=== PATIENT | female | born 1985 | race Caucasian/White ===

== ENCOUNTER 2021-04-15 10:56 | Emergency (ER) | payer OTHER, SELFPAY ==
[2021-04-15 11:00] VITALS: BP 158/112; PULSE 86; RESP 18; TEMP 36.8; O2SAT 100
--- NOTE | 2021-04-15 11:19 | ED.BACK ---
HPI - Back Pain/Injury General Chief Complaint: Back Pain/Injury Stated Complaint: low back pain Time Seen by Provider: 04/15/21 11:19 Source: patient, family and RN notes reviewed Mode of arrival: ambulatory Limitations: no limitations History of Present Illness HPI Narrative: 35-year-old female presents to the [facility] with complaints of lower back pain after falling on the ice on 09 April. Was seen in ER on 10 April states there was an x-ray done and treated for muscle strain. No acute findings on the x-ray. Reports having enough muscle relaxers and anti-inflammatories at home states she has still half bottle Denies any loss or retention of bowel or bladder. States that every once in a while she has a shooting pain left leg. Denies any numbness or tingling MD elicited complaint: back pain Related Data Home Medications Medication Instructions Recorded Confirmed amlodipine 5 mg PO DAILY 04/15/21 04/15/21 chlorthalidone 25 mg PO DAILY 04/15/21 04/15/21 clonidine HCl 0.2 mg PO DAILY 04/15/21 04/15/21 cyclobenzaprine 10 mg PO DAILY PRN 04/15/21 04/15/21 hydralazine 50 mg PO DAILY 04/15/21 04/15/21 losartan 100 mg PO DAILY 04/15/21 04/15/21 naproxen 500 mg PO DAILY PRN 04/15/21 04/15/21 potassium chloride 20 meq PO DAILY 04/15/21 04/15/21 Allergies Allergy/AdvReac Type Severity Reaction Status Date / Time No Known Allergies Allergy Verified 04/15/21 11:29 Review of Systems Review of Systems: All systems reviewed & are unremarkable except as noted in HPI and below Constitutional: Constitutional: Reports no additional constitutional complaints Eyes: Eyes: Reports no additional eye complaints ENT: Reports system reviewed and no additional complaints, except as documented Cardiovascular: Cardiovascular: Reports no additional cardiovascular complaints and Denies chest pain Respiratory: Respiratory: Reports no additional respiratory complaints Gastrointestinal: Gastrointestinal: Reports no additional gastrointestinal complaints and Denies abdominal pain Musculoskeletal: Musculoskeletal: Reports as per HPI and Reports back pain (Left lower) Integumentary/Breasts: Skin/Breast: Reports system reviewed and no additional complaints, except as docu Neurologic: Reports system reviewed and no additional complaints, except as documented, Denies focal weakness, Denies numbness and Denies weakness Psychiatric: Psychiatric: Reports no additional psychiatric complaints Allergic/Immunologic: Allergic/Immunologic: Reports no additional allergic/immunologic complaints PMFSH Comments At the time of my signature, I reviewed and agree with the nursing past medical, surgical, social, and family history. There is no relevant family history pertinent to the patient complaint. Exam Const: General: healthy appearing, no acute distress and alert Nutritional Appearance: well nourished and obese morbidly obese Orientation/consciousness: patient oriented x3 Limitations: no limitations HENMT: Head: normal to inspection Ears: external ears normal Eyes: Pupils: Equal, round and reactive pupils present Neck: Neck: normal visual inspection, no lymphadenopathy and no meningeal signs Chest: Chest palpation & inspection: normal inspection of the chest Resp: Effort & Inspection: normal respiratory effort and no use of accessory muscles Auscultation: clear to auscultation bilaterally, no crackles, no rales, no rhonchi and no wheezes Cardio: Rate: regular rate Rhythm: regular rhythm GI: GI Palp: Yes Soft to palpation, No Tenderness to palpation present (GI) and No Guarding due to palpation present (GI) Back/Spine/Pelvis: Back: no CVA tenderness Cervical Spine: normal cervical lordosis and cervical ROM normal Thoracic/Lumbar Spine: thoracic and lumbar spine normal to inspection Pelvis: no pain with anterior-posterior compression and no pain with lateral compression Back/spine/pelvis image: 1. Tenderness with palpation and with mo
== END 2021-04-15 11:45 | disposition home or self-care (01) ==
PROVIDERS: Emergency Provider Nurse Practitioner
DX: S39.012A Strain of muscle, fascia and tendon of lower back, initial encounter (principal); W01.0XXA Fall on same level from slipping, tripping and stumbling without subsequent striking against object, initial encounter; I10 Essential (primary) hypertension
CPT/HCPCS: 99212; G0463

== ENCOUNTER 2021-12-09 08:37 | Emergency (ER) | payer OTHER, SELFPAY ==
[2021-12-09 08:45] VITALS: BP 161/114; PULSE 78; RESP 12; TEMP 36; O2SAT 100
--- NOTE | 2021-12-09 09:14 | ED.FEMALEGU ---
HPI - Female Genitourinary General Chief complaint: Urogenital-Female Stated complaint: yeast infection Time Seen by Provider: 12/09/21 09:14 Source: patient and RN notes reviewed Mode of arrival: ambulatory Limitations: no limitations History of Present Illness HPI Narrative: 35-year-old female presented for concern of yeast infection. She states she took amoxicillin for ear infection now states she endorses itching, white discharge, irritation, mild burning with urination. Denies concern for STD. Denies hematuria, frequency, or urgency, n/v/f/c. Related Data Home Medications Medication Instructions Recorded Confirmed amlodipine 5 mg tablet 5 mg PO DAILY 04/15/21 12/09/21 chlorthalidone 25 mg tablet 25 mg PO DAILY 04/15/21 12/09/21 clonidine HCl 0.2 mg tablet 0.2 mg PO DAILY 04/15/21 12/09/21 cyclobenzaprine 10 mg tablet 10 mg PO DAILY PRN muscle spasms 04/15/21 12/09/21 hydralazine 50 mg tablet 50 mg PO DAILY 04/15/21 12/09/21 losartan 100 mg tablet 100 mg PO DAILY 04/15/21 12/09/21 naproxen 500 mg tablet 500 mg PO DAILY PRN Pain 04/15/21 12/09/21 potassium chloride 20 mEq 20 meq PO DAILY 04/15/21 12/09/21 tablet,extended release Allergies Allergy/AdvReac Type Severity Reaction Status Date / Time No Known Allergies Allergy Verified 12/09/21 08:54 Review of Systems Review of Systems: CONSTITUTIONAL: Denies body aches, fever, chills, or sweats. CARDIOVASCULAR: Denies chest pain, palpitations, or edema. RESPIRATORY: Denies cough or dyspnea. GASTROINTESTINAL: Denies abdominal pain, nausea, vomiting, or diarrhea. GENITOURINARY: Reports dysuria, discharge; denies frequency, urgency, hematuria, flank pain SKIN: Denies rash, itching, or wounds. MUSCULOSKELETAL: Denies back pain or myalgia. PMFSH Comments At time of signature, I have reviewed and agree with nursing past medical, surgical, social and family history unless otherwise noted. Please see nursing chart for further information. There is no relevant family history pertinent to the presenting complaint Exam Narrative: GENERAL: Well-appearing ENT: Mucous membranes pink and moist. CHEST: Clear to auscultation. HEART: Regular rate and rhythm. ABDOMEN: Soft, nontender, nondistended, normal active bowel sounds. No CVA tenderness SKIN: Warm, dry, no rash. NEURO: Alert and oriented x3. Gait steady. Course Course Emergency Course: Patient is aware of diagnosis, understands and agrees to treatment plan. Anticipatory guidance given. Patient agrees to follow-up as directed and is aware of reasons to seek care at the emergency department. Portions of this record may have been created with voice recognition software Level of Care: Express Care Visit Vital Signs Vital signs: Reviewed MDM - Female Genitourinary MDM Narrative Medical decision making narrative: Urine showed Trace leuk, will send for culture and treat for yeast at this time. She is aware we will contact her with urine culture results. Advised supportive measures and signs/symptoms to go to the ER. Pt is appropriate for outpt treatment and f/u. Differential Diagnosis Differential diagnosis: Likely urinary tract infection, bacterial vaginosis, vaginitis and cystitis Discharge Plan Discharge Clinical Impression: Yeast infection Patient Disposition: Home, Self-Care Condition: Stable Instructions: Antibiotic Form Additional Instructions: Your urine will be sent for culture to see if bacteria is causing your symptoms. You will be notified when the results are in. Take the antibiotic as prescribed you will need to follow up with your PCP or Obgyn for further evaluation and treatment if symptoms persist. Prescriptions: New fluconazole 150 mg tablet 150 mg PO DAILY Qty: 2 0RF No Action cyclobenzaprine 10 mg tablet 10 mg PO DAILY PRN (Reason: muscle spasms) chlorthalidone 25 mg tablet 25 mg PO DAILY amlodipine 5 mg tablet 5 mg PO DAILY
== END 2021-12-09 09:30 | disposition home or self-care (01) ==
PROVIDERS: Emergency Provider Nurse Practitioner Family
DX: B37.3 Candidiasis of vulva and vagina (principal); B96.20 Unspecified Escherichia coli [E. coli] as the cause of diseases classified elsewhere; I10 Essential (primary) hypertension
CPT/HCPCS: 81003; 87077; 87086; 87088; 87186; 99213; G0463

== ENCOUNTER 2024-05-14 08:40 | Emergency (ER) | payer OTHER, SELFPAY ==
--- NOTE | 2024-05-14 08:50 | ED.FEMALEGU ---
HPI - Female Genitourinary General Chief complaint: Urogenital-Female Stated complaint: yeast infection Time Seen by Provider: 05/14/24 08:50 Source: patient Mode of arrival: ambulatory Limitations: no limitations History of Present Illness HPI Narrative: Curt is a 38-year-old female patient presenting to the clinic today with complaints of a possible yeast infection. She reports she is having a milky white discharge with vaginal itching. States she gets a yeast infection every year. Also reports changing soaps recently. Denies any concern for sexually transmitted infections. Has not had intercourse for approximately 5 months. Last menstrual period was last month. Denies any abdominal pain, flank pain, fevers, chills, body aches. Denies any vaginal odor. She denies any urinary symptoms. Related Data Home Medications ?Medication ?Instructions ?Recorded ?Confirmed ?Last Taken ?Type amlodipine 5 mg tablet 5 mg PO DAILY 04/15/21 05/14/24 Unknown History chlorthalidone 25 mg tablet 25 mg PO DAILY 04/15/21 05/14/24 Unknown History clonidine HCl 0.2 mg tablet 0.2 mg PO DAILY 04/15/21 05/14/24 Unknown History hydralazine 50 mg tablet 50 mg PO DAILY 04/15/21 05/14/24 Unknown History losartan 100 mg tablet 100 mg PO DAILY 04/15/21 05/14/24 Unknown History carvedilol 6.25 mg tablet 6.25 mg PO DAILY 05/14/24 05/14/24 Unknown History Allergies Allergy/AdvReac Type Severity Reaction Status Date / Time No Known Allergies Allergy Verified 05/14/24 08:47 Review of Systems Review of Systems: Pertinent positives per HPI. Patient denies any fever, chills, rash, headache, visual changes, dizziness, cough, runny nose, sore throat, shortness of breath, chest pain, palpitations, nausea, vomiting, diarrhea, constipation, abdominal pain, or any urinary issues. PMFSH Comments At the time of my signature, I reviewed and agree with the nursing past medical, surgical, social, and family history. There is no relevant family history pertinent to the patient complaint. Exam Narrative: General: Well-developed, morbidly obese, in no apparent distress. Head: Normocephalic, atraumatic. Cardio: Regular rate and rhythm, s1 and s2 normal, no murmur appreciated. Resp: Clear to auscultation bilaterally, no rhonchi, rales, wheezing or rubs. Abdomen: Soft, pliable, bowel sounds present in all quadrants, non-tender to palpation, no organomegly, no CVAT tenderness. : Deferred Course Course Emergency Course: Portions of this record may have been created with voice recognition software. Level of Care: Express Care Visit Vital Signs Vital signs: Vital signs reviewed MDM - Female Genitourinary MDM Narrative Medical decision making narrative: At the time of visit patient is resting comfortably on the exam table. Patient appears to be nontoxic. Plan: I suspect patient has vaginal yeast infection versus bacterial vaginosis. Will send in prescriptions for metronidazole and fluconazole. Supportive measures were discussed with the patient and they voiced understanding discharge instructions and agrees to treatment plan. Return precautions reviewed Differential Diagnosis Differential diagnosis: Likely urinary tract infection, bacterial vaginosis, trichomoniasis, cervicitis, ovarian cyst, vaginitis, ruptured ovarian cyst, cystitis and dysmenorrhea Discharge Plan Discharge Clinical Impression: Vaginal discharge, Vagina itching Patient Disposition: Home, Self-Care Condition: Stable Instructions: Antibiotic Form, Bacterial Vaginosis (ED), Yeast Infection (ED) Additional Instructions: May take Flagyl and fluconazole as prescribed May apply over the counter Monistat cream to the outer vaginal area as prescribed Follow-up with your primary care doctor/OB doctor if symptoms persist Patient Language: Haitian Prescriptions: New fluconazole 150 mg tablet 150 mg PO ONCE Qty: 2 0RF Rx Instructions: as a single dose. May repeat in 72 hours if needed. metronidazole 500 mg tablet 500 mg PO Q12H 7 Days Qty: 14 0RF No Action carvedilol 6.25 mg tablet 6.25 mg PO DAILY chlorthalidone 25 mg tablet 25 mg PO DAILY amlodipine 5 mg tablet 5 mg PO DAILY clonidine HCl 0.2 mg tablet 0.2 mg PO DAILY hydralazine 50 mg tablet 50 mg PO DAILY losartan 100 mg tablet 100 mg PO DAILY Follow-up/Referrals: PHYSICIAN,MEDICAL ARTIST [Primary Care Provider] - Time of Disposition: 08:57 Quality NIHSS Nursing Documentation ED NIHSS nursing documentation: reviewed/agree
[2024-05-14 08:52] VITALS: BP 150/87; PULSE 83; RESP 16; TEMP 35.8; O2SAT 98
== END 2024-05-14 09:05 | disposition home or self-care (01) ==
PROVIDERS: Emergency Provider Nurse Practitioner Family
DX: N89.8 Other specified noninflammatory disorders of vagina (principal)
CPT/HCPCS: 99213; G0463

== ENCOUNTER 2024-06-05 14:59 | Emergency (ER) | payer OTHER, SELFPAY ==
[2024-06-05 15:03] VITALS: BP 154/97; PULSE 90; RESP 20; TEMP 36.6; O2SAT 99
--- NOTE | 2024-06-05 15:40 | ED.GENADULT ---
HPI - General Adult General Chief complaint: Extremity Injury, Upper Stated complaint: right thumb sore Time Seen by Provider: 06/05/24 15:40 Source: patient, RN notes reviewed and old records reviewed Mode of arrival: ambulatory Limitations: no limitations History of Present Illness HPI narrative: 38-year-old female presents to the [facility] with soreness to the right thumb. Denies injury. Mild swelling and tenderness noted to the IP joint of the right thumb. Patient reports symptoms started yesterday. Did take 1 dose of ibuprofen. Related Data Home Medications ?Medication ?Instructions ?Recorded ?Confirmed ?Last Taken ?Type amlodipine 5 mg tablet 5 mg PO DAILY 04/15/21 05/14/24 Unknown History chlorthalidone 25 mg tablet 25 mg PO DAILY 04/15/21 05/14/24 Unknown History clonidine HCl 0.2 mg tablet 0.2 mg PO DAILY 04/15/21 05/14/24 Unknown History hydralazine 50 mg tablet 50 mg PO DAILY 04/15/21 05/14/24 Unknown History losartan 100 mg tablet 100 mg PO DAILY 04/15/21 05/14/24 Unknown History carvedilol 6.25 mg tablet 6.25 mg PO DAILY 05/14/24 05/14/24 Unknown History Allergies Allergy/AdvReac Type Severity Reaction Status Date / Time No Known Allergies Allergy Verified 06/05/24 15:22 Review of Systems Review of Systems: All systems reviewed & are unremarkable except as noted in HPI and below Constitutional: Constitutional: Reports no additional constitutional complaints ENT: Reports system reviewed and no additional complaints, except as documented Cardiovascular: Cardiovascular: Reports no additional cardiovascular complaints, Denies chest pain and Denies dyspnea Respiratory: Respiratory: Reports no additional respiratory complaints, Denies chest congestion, Denies cough and Denies dyspnea Musculoskeletal: Musculoskeletal: Reports as per HPI Integumentary/Breasts: Skin/Breast: Reports system reviewed and no additional complaints, except as docu PMFSH Comments At the time of my signature, I reviewed and agree with the nursing past medical, surgical, social, and family history. There is no relevant family history pertinent to the patient complaint. Exam Const: General: cooperative, healthy appearing, comfortable, no acute distress, well developed, alert and well nourished Nutritional Appearance: well nourished Orientation/consciousness: patient oriented x3 Limitations: no limitations HENMT: Head: normal to inspection Eyes: General: appearance normal, both eyes and all related structures Alignment and Position: alignment normal Neck: Neck: normal visual inspection, full ROM, no lymphadenopathy and no meningeal signs Chest: Chest palpation & inspection: normal inspection of the chest Resp: Effort & Inspection: normal respiratory effort and able to speak in complete sentences Cardio: Rate: regular rate Skin: General skin exam: normal color and no rashes or lesions noted Neuro: General: patient oriented x3, gait normal, moves all extremities and no meningeal signs Cognition (Neuro): normal cognition Speech: normal speech Gait exam (Neuro): Normal gait present Extrem: General: normal to inspection, full ROM, capillary refill normal and normal gait Right upper extremity: Extremity exam: right hand neuromotor exam normal wrist extension normal, thumb opposition normal, thumb IP flexion normal, thumb ADduction normal and fingers 2-5 ABduction normal, neurosensory exam normal radial nerve sensory function normal, abnormal ROM of finger pain with active ROM of the thumb and swelling of the thumb at the IP joint; no unusual warmth, no abrasions, no lacerations and no ecchymosis Psych: Appearance: grossly normal and well kempt Mental Status: mental status grossly normal Speech and movement: Normal speech and movement present and Clear speech present Affect: normal affect Attitude: cooperative Course Course Level of Care: Express Care Visit Vital Signs Vital signs: Vital Signs Temperature 97.9 F 06/05/24 15:03 Pulse Rate 90 06/05/24 15:03 Respiratory Rate 20 06/05/24 15:03 Blood Pressure 154/97 H 06/05/24 15:03 Pulse Oximetry 99 06/05/24 15:03 Oxygen Delivery Room Air 06/05/24 15:03 Temperature 97.9 F 06/05/24 15:03 Pulse Rate 90 06/05/24 15:03 Respiratory Rate 20 06/05/24 15:03 Blood Pressure 154/97 H 06/05/24 15:03 Pulse Oximetry 99 06/05/24 15:03 Oxygen Delivery Room Air 06/05/24 15:03 Reviewed Medical Decision Making MDM Narrative Medical decision making narrative: Patient sitting comfortably in exam room. Nontoxic, vitals stable. Patient in no acute distress Patient presents for swelling, tenderness, decreased range of motion of the IP joint right thumb. X-ray showed gout versus, arthritic changes. Prescribed indomethacin for anti-inflammatory, encourage patient to follow-up with primary care provider for further evaluation Patient appropriate for outpatient treatment and follow-up Discharge instructions reviewed with patient, as well as provided in writing per nursing staff. The instructions also include specific and strict return/GO TO THE ER as well as f/u information. All questions have been answered, and the patient deny any further questions with discharge and discharge plan. Some parts of this dictation were generated by voice recognition software and may contain typographical and/or grammatical inaccuracies. Differential Diagnosis Differential Diagnosis: Gout, arthritis, sprain, strain Medical Records Medical records reviewed: Yes I reviewed the external patient's medical records. Vital Signs Vital Signs: Vital Signs Temperature 97.9 F 06/05/24 15:03 Pulse Rate 90 06/05/24 15:03 Respiratory Rate 20 06/05/24 15:03 Blood Pressure 154/97 H 06/05/24 15:03 Pulse Oximetry 99 06/05/24 15:03 Oxygen Delivery Room Air 06/05/24 15:03 Temperature 97.9 F 06/05/24 15:03 Pulse Rate 90 06/05/24 15:03 Respiratory Rate 20 06/05/24 15:03 Blood Pressure 154/97 H 06/05/24 15:03 Pulse Oximetry 99 06/05/24 15:03 Oxygen Delivery Room Air 06/05/24 15:03 Reviewed Lab Data Lab results reviewed: Yes I reviewed the patient's lab results. Labs: Reviewed Imaging Data Radiologist's impression: EXAMINATION: XR finger 1st RT min 2V DATE: 06/05/2024 15:53 INDICATION: Right thumb pain TECHNIQUE: Dorsal palmar, lateral and oblique views of the right first digit were obtained COMPARISON: None FINDINGS: Alignment is normal. No fracture. Mild osteoarthritis at the first carpometacarpal joint. Couple small globular regions of calcific density along the radial side of the first interphalangeal joint. No erosions to suggest inflammatory arthritis. Soft tissues are unremarkable. IMPRESSION: 1. A couple small globular regions of dystrophic calcifications at the radial aspect of the first interphalangeal joint. This can be seen with acute calcific calcific or arthritis relate to hydroxyapatite deposition disease, gout, calcium pyrophosphate deposition (CPPD) disease or heterotopic ossification related to chronic insult. Critical Care Time Critical Care Time Critical Care Time: No Discharge Plan Discharge Clinical Impression: Pain in thumb joint with movement of right hand Patient Disposition: Home, Self-Care Condition: Stable Instructions: Antibiotic Form, Gout (ED), Arthritis (ED) Additional Instructions: Your x-ray she did not show fractures. It showed a possibility of gout or an inflammatory arthritis condition. Take medication as prescribed Rest, ice and elevate. No improvement in 1 week follow-up with your primary care provider for further evaluation, testing and treatment Today your blood pressure was 154/97. Is recommended that you follow-up with primary care provider to have this rechecked within 2 weeks For new or worsening symptoms go directly to the emergency room Patient Language: Korean Prescriptions: New indomethacin 50 mg capsule 50 mg PO TID 7 Days Qty: 21 0RF Rx Instructions: administer with food or milk No Action carvedilol 6.25 mg tablet 6.25 mg PO DAILY fluconazole 150 mg tablet 150 mg PO ONCE Qty: 2 0RF Rx Instructions: as a single dose. May repeat in 72 hours if needed. metronidazole 500 mg tablet 500 mg PO Q12H 7 Days Qty: 14 0RF chlorthalidone 25 mg tablet 25 mg PO DAILY amlodipine 5 mg tablet 5 mg PO DAILY clonidine HCl 0.2 mg tablet 0.2 mg PO DAILY hydralazine 50 mg tablet 50 mg PO DAILY losartan 100 mg tablet 100 mg PO DAILY Follow-up/Referrals: PHYSICIAN,[employer] [Primary Care Provider] - Stand Alone Forms: Work/School Release IP Time of Disposition: 16:25
== END 2024-06-05 16:28 | disposition home or self-care (01) ==
PROVIDERS: Emergency Provider Nurse Practitioner
DX: M25.541 Pain in joints of right hand (principal); I10 Essential (primary) hypertension
CPT/HCPCS: 73140; 99213; G0463